=== PATIENT | female | born 1955 | race Hispanic/Latino ===

== ENCOUNTER 2017-06-03 00:08 | Emergency (ER) | payer SELFPAY ==
[~2017-06-03] VITALS: Ht 152.4 cm; Wt 61.8 kg
[~2017-06-03 00:08] MED LIST: AMOXICILLIN500 MG PO; BACTRIM DS1 TAB PO; CIPROFLOXACN500 MG PO; CORTISPORIN OTI10 ML AS; LORTAB 5/3255 MG PO; MUPIROCIN2 % EX; NAPROSYN500 MG OR; TYLENOL500 MG OR
[2017-06-03] MEDS ORDERED: BENADRYL 50MG C50 MG PO (01:08)
[2017-06-03] MEDS ORDERED: AMOXICILLIN875 MG PO (01:08)
[2017-06-03] MEDS ORDERED: LORTAB 10-325 M1 TAB PO (01:08)
[2017-06-03 01:44] VITALS: BP 137/77
== END 2017-06-03 01:46 | disposition home or self-care (01) | DRG 603 ==
LOC: ED 00:08
DX: L01.00 Impetigo, unspecified (principal); L25.9 Unspecified contact dermatitis, unspecified cause

== ENCOUNTER 2017-09-15 18:33 | Emergency (ER) | payer SELFPAY ==
[~2017-09-15] VITALS: Ht 152.4 cm; Wt 60.8 kg
[~2017-09-15 18:33] MED LIST changes: +AMOXICILLIN875 MG PO; +BENADRYL 50MG C50 MG PO; +LORTAB 10-325 M1 TAB PO
[2017-09-15] MEDS ORDERED: PREDNISONE5 MG PO (18:42)
[2017-09-15] MEDS ORDERED: BENADRYL 50MG C50 MG PO (21:37)
[2017-09-15] MEDS ORDERED: KEFLEX500 M1 PO (21:37)
[2017-09-15 21:38] VITALS: BP 132/67
== END 2017-09-15 21:50 | disposition home or self-care (01) | DRG 607 ==
LOC: ED 18:33
DX: R22.0 Localized swelling, mass and lump, head (principal); R50.9 Fever, unspecified

== ENCOUNTER 2018-01-11 21:01 | Emergency (ER) | payer SELFPAY ==
[~2018-01-11] VITALS: Ht 152.4 cm; Wt 62.2 kg
[~2018-01-11 21:01] MED LIST changes: +KEFLEX500 M1 PO; +PREDNISONE5 MG PO
[2018-01-11 21:58] LABS: INFLUENZA A NONE DETECTED (NONE DETECT); INFLUENZA B NONE DETECTED (NONE DETECT)
[2018-01-11] MEDS ORDERED: ROBITUSSIN AC10 ML PO (22:20)
[2018-01-11] MEDS ORDERED: CEPHALEXIN500 MG PO (22:20)
[2018-01-11 22:44] VITALS: BP 137/67
== END 2018-01-11 22:58 | disposition home or self-care (01) | DRG 153 ==
LOC: ED 21:01
PROVIDERS: Emergency Medicine
DX: J06.9 Acute upper respiratory infection, unspecified (principal); R05 Cough; R50.9 Fever, unspecified

== ENCOUNTER 2018-12-30 22:52 | Emergency (ER) | payer SELFPAY ==
[~2018-12-30] VITALS: Ht 152.4 cm; Wt 68.2 kg
[~2018-12-30 22:52] MED LIST changes: +CEPHALEXIN500 MG PO; +ROBITUSSIN AC10 ML PO
[2018-12-31] MEDS ORDERED: NAPROSYN500 MG PO (00:04)
[2018-12-31 00:15] VITALS: BP 127/72
== END 2018-12-31 00:20 | disposition home or self-care (01) | DRG 563 ==
LOC: ED 22:52
DX: S83.91XA Sprain of unspecified site of right knee, initial encounter (principal); W01.0XXA Fall on same level from slipping, tripping and stumbling without subsequent striking against object, initial encounter; Y92.009 Unspecified place in unspecified non-institutional (private) residence as the place of occurrence of the external cause

== ENCOUNTER 2019-02-02 09:48 | Emergency (ER) | payer SELFPAY ==
[~2019-02-02] VITALS: Ht 152.4 cm; Wt 59.0 kg
[~2019-02-02 09:48] MED LIST changes: +NAPROSYN500 MG PO
[2019-02-02 10:36] LABS: HEMATOCRIT 41.3 % (37.0-47.0); HEMOGLOBIN 13.4 g/dl (12.0-16.0); IMMATURE GRANULOCYTES 0.4 % (0.0-5.0); MEAN CELL VOLUME 99.5 fL CALC (80.0-100.0); MEAN CORPUSCULAR HGB 32.3 pG CALC (26.0-32.0); MEAN CORPUSCULAR HGB CONC 32.4 g/L CALC (32.0-36.0); NEUT# 2.82 thou/uL (2.00-7.15); RED BLOOD COUNT 4.15 mill/uL (4.20-5.60); RED CELL DISTRI WIDTH 12.8 % (11.5-15.5)
[2019-02-02 10:48] LABS: ALBUMIN 4.1 g/dL (3.2-5.0); ALKALINE PHOSPHATASE 80 u/l (38-126); ANION GAP 12 (6-22 (CALC)); BUN 12 mg/dL (8-23); BUN/CREATININE RATIO 20 (12-20 (CALC)); CARBON DIOXIDE 26 mmol/l (22-30); CHLORIDE 109 mmol/l (95-108); CREATININE 0.6 mg/dL (0.5-1.0); GFR > 60 ML/MIN (>=60 (CALC)); GFR FOR AFR.AMER. > 60 ML/MIN (>=60 (CALC)); SGOT/AST 15 u/l (9-36); SODIUM 142 mmol/l (137-146); TOTAL PROTEIN 7.2 g/dL (6.3-8.2)
[2019-02-02 10:49] LABS: BILIRUBIN, TOTAL 0.7 mg/dL (0.0-1.4)
[2019-02-02 13:20] VITALS: BP 132/58
== END 2019-02-02 13:33 | disposition home or self-care (01) | DRG 103 ==
LOC: ED 09:48
PROVIDERS: Emergency Medicine
DX: R51 Headache (principal); R11.2 Nausea with vomiting, unspecified; R19.7 Diarrhea, unspecified; R42 Dizziness and giddiness; R00.2 Palpitations; I10 Essential (primary) hypertension

== ENCOUNTER 2019-10-20 10:49 | Emergency (ER) | payer SELFPAY ==
[2019-10-20] MEDS ORDERED: KEFLEX500 M1 PO (11:32)
[2019-10-20 11:46] VITALS: BP 128/74
== END 2019-10-20 11:46 | disposition home or self-care (01) | DRG 603 ==
LOC: ED 10:49
DX: L03.012 Cellulitis of left finger (principal); L02.512 Cutaneous abscess of left hand

== ENCOUNTER 2021-04-14 08:33 | Day surgery (SDC) | payer MEDICAID ==
[~2021-04-14 08:33] MED LIST changes: +AMOXICILLIN250 M1 PO; +MELOXICAM7.5 MG PO; +NEO/POLY/HC AD; +UNKNOWN ANTIBIOTIC
[2021-04-14 11:42] VITALS: BP 138/78
--- NOTE | 2021-04-14 15:13 | NUR ---
PER PHYSICIAN NOTIFIED PATIENT OF PROCEDURE FINDINGS, PATIENT AGREED WITH INFORMATION PROVIDED, AND PER PATIENT WILL FOLLOW UP IN OFFICE 04/25/21. ALSO, PATIENT STATED DOING WELL, TOLERALTED PROCEDURE WELL, AND IS HOME RESTING WITH DAUGHTER AT SIDE.
== END 2021-04-14 11:58 | disposition home or self-care (01) ==
LOC: ENDO 08:33
PROVIDERS: ATTEND Surgery
DX: K57.31 Diverticulosis of large intestine without perforation or abscess with bleeding (principal); K64.8 Other hemorrhoids

== ENCOUNTER 2021-06-02 22:12 | Inpatient (IN) | payer MEDICAID ==
[~2021-06-02] VITALS: Ht 147.3 cm; Wt 63.0 kg
--- NOTE | 2021-06-02 22:40 | NUR ---
ATTEMPT TO CALL SON MAMADOU WITH NUMBER PROVIDED. NO ANSWER. VOICEMAIL LEFT.
--- NOTE | 2021-06-02 22:50 | NUR ---
SON ARRIVES AND IS AT BEDSIDE. BEGINS TO CRY AND SAY "PLEASE DON'T LEAVE ME MOM", PT WHO WAS PREVIOUSLY SEDATED AND ONLY RESPONDED TO PHYSICAL STIMULI WITH MUMBLED SPEECH BEGINS TO CRY AND RESPOND TO SON CLEARLY. DOES NOT OPEN EYES. DR. SHERIFF IN AND ATTEMPTS TO INTERVIEW PT AGAIN. PT RETURNS TO SLEEP WITH NO RESPONSE TO VERBAL STIMULI AND MINIMAL RESPONSE TO PHYSICAL STIMULI.
--- NOTE | 2021-06-02 22:55 | NUR ---
L-H IV 20G INITIATED X1 ATTEMPT. LABS COLLECTED.
--- NOTE | 2021-06-02 23:04 | NUR ---
POISON CONTROL CALLED, CASE DISCUSSED. POISON CONTROL DIRECTIONS ENDORSED TO DR. SHERIFF. TREATMENT PLAN DISCUSSED WITH SON AT BEDSIDE.
[2021-06-02 23:49] LABS: HEMOGLOBIN 13.1 g/dl (12.0-16.0); IMMATURE GRANULOCYTES 0.4 % (0.0-5.0); MEAN CORPUSCULAR HGB 32.9 pG CALC (26.0-32.0); NEUT# 4.24 thou/uL (2.00-7.15); RED BLOOD COUNT 3.98 mill/uL (4.20-5.60); RED CELL DISTRI WIDTH 14.2 % (11.5-15.5)
--- NOTE | 2021-06-03 00:43 | NUR ---
PT SLEEPING. MAINTAINSAIRWAY INDEPENDENTLY.SPO2 97%. SR 82 ON MONITOR. SON AT BEDSIDE.
[2021-06-03 00:49] LABS: ALBUMIN 3.5 g/dL (3.2-5.0); ALKALINE PHOSPHATASE 56 u/l (38-126); ANION GAP 7 (6-22 (CALC)); BUN 18 mg/dL (8-23); BUN/CREATININE RATIO 27 (12-20 (CALC)); CARBON DIOXIDE 27 mmol/l (22-30); CHLORIDE 106 mmol/l (95-108); CREATININE 0.7 mg/dL (0.5-1.0); GFR > 60 ML/MIN (>=60 (CALC)); GFR FOR AFR.AMER. > 60 ML/MIN (>=60 (CALC)); POTASSIUM 3.9 mmol/l (3.5-5.1); SGOT/AST 20 u/l (9-36); SODIUM 136 mmol/l (137-146); TOTAL PROTEIN 6.4 g/dL (6.3-8.2)
[2021-06-03 00:54] LABS: BILIRUBIN, TOTAL 0.2 mg/dL (0.0-1.4)
--- NOTE | 2021-06-03 00:59 | NUR ---
PT IS LETHARGIC, RESPONDS ONLY TO PAIN AND TO SON WHEN STAFF NOT IN ROOM. CANNOT COMPLETE SUICIDE ASSESMENT AT THIS TIME.
[2021-06-03 01:01] LABS: MYOGLOBIN 19 ng/mL (0 - 62)
[2021-06-03 01:48] LABS: URINE BILIRUBIN - DIPSTICK NEGATIVE (NEGATIVE); URINE BLOOD DIPSTICK NEGATIVE (NEGATIVE); URINE COLOR YELLOW; URINE GLUCOSE - DIPSTICK NEGATIVE (NEGATIVE); URINE KETONE NEGATIVE (NEGATIVE); URINE LEUK ESTERASE NEGATIVE (NEGATIVE); URINE NITRITE - DIPSTICK NEGATIVE (Negative); URINE PROTEIN - DIPSTICK NEGATIVE (NEG-TRACE); URINE SPECIFIC GRAVITY >=1.030; URINE UROBILINOGEN - DIPSTICK 0.2 E.U./dL (0.2)
--- NOTE | 2021-06-03 02:00 | NUR ---
PT APPEARS TO BE SLEEPING COMFORTABLY. MAINTAINING AIRWAY. NO APPARENT DISTRESS. SON REMAINS AT BEDSIDE. CALL [facility]USH WITHIN REACH.
--- NOTE | 2021-06-03 04:00 | NUR ---
PT APPEARS TO BE SLEEPING COMFORTABLY. MAINTAINING AIRWAY. NO APPARENT DISTRESS. SON REMAINS AT BEDSIDE. CALL [facility]USH WITHIN REACH.
--- NOTE | 2021-06-03 04:23 | NUR ---
BLANKET PROVIDED. PT CON'T TO SLEEP. NO APPARENT DISTRESS. VSS.
--- NOTE | 2021-06-03 04:40 | NUR ---
CALL RECEIVED FROM POISON CONTROL. NO CHANGES IN TX PLAN. POISON CONTROL WILL CALL BACK LATER IN DAY.
--- NOTE | 2021-06-03 07:15 | NUR ---
DR VILA AT BEDSIDE. PT SPO2 98% ON 2L NC AND HAS GURGLING IN THROAT WHEN BREATHING. DR VILA SPEAKING WITH SON AT BEDSIDE AND DAUGHTER ON PHONE REGARDING INTUBATION. ALL ARE IN AGREEANCE TO INTUBATE PATIENT.
--- NOTE | 2021-06-03 07:30 | NUR ---
FAMILY NOW QUESTIONING IF INTUBATION IS THE RIGHT THING. FAMILY SPEAKING WITH DR VILA VIA PHONE TO DISCUSS RISKS VS BENEFITS.
--- NOTE | 2021-06-03 07:58 | NUR ---
SYSTEMS TESTER SET UP VENTILATOR AT BEDSIDE PER POSSIBLE INTUBATION TO OCUR. AWAITING FAMILY DECISION. SYSTEMS TESTER TO MONITOR.
--- NOTE | 2021-06-03 08:15 | NUR ---
FAMILY HAS ALL DECIDED THAT PATIENT WILL BE INTUBATED. DR VILA AND KACIE YANG AT BEDSIDE.
--- NOTE | 2021-06-03 08:25 | NUR ---
DR VILA AT BEDSIDE TO INTUBATE . 20 MG OF ETOMIDATE GIVEN IVP BY DR VILA AT 0825 100 MG OF ROCURONIUM IVP AT 0826 PATIENT INTUBATED WITH A 7.5 ET TUBE MEASURING 22 AT THE LIP AT 0827 PROPOFOL INITAITED AT 10 MCG/KG/MIN. VSS 16F NG TUBE PLACED TO RIGHT NARES BY DR VILA. STOMACH CONTENTS AND PPLACEMENT CONFIRMED BY AUSCULTATION. DR VILA PLACED RIGHT IJ CENTRAL LINE AT 0841.
--- NOTE | 2021-06-03 09:20 | NUR ---
PATIENT REMAINS SEDATED. DR VILA SPEAKING WITH WHO IS AT BEDSIDE.
--- NOTE | 2021-06-03 09:58 | NUR ---
INITIATED INVASIVE MECHANICAL VENTILATION PER PT POSSIBLE OD. AIRWAY PROTECTION IS THE OBJECTIVE AT THIS TIME. ETT SECURE AND PATENT. ABG TO BE DRAWN. SPANISH TEACHER TO MONITOR.
--- NOTE | 2021-06-03 10:20 | NUR ---
DR WARREN AT BEDSIDE.
--- NOTE | 2021-06-03 11:01 | NUR ---
POISON CONTROL CALLED FOR AN UPDATED THEY REPORTED CONTINUE SUPPORTIVE CARE.
--- NOTE | 2021-06-03 11:19 | NUR ---
Reassessment of patient completed. No distress noted.
--- NOTE | 2021-06-03 12:04 | NUR ---
Reassessment of patient completed. No distress noted.
--- NOTE | 2021-06-03 14:00 | NUR ---
Reassessment of patient completed. No distress noted. TURNED TO LEFT SIDE
--- NOTE | 2021-06-03 14:10 | NUR ---
Reassessment of patient completed. No distress noted.
--- NOTE | 2021-06-03 15:56 | NUR ---
Reassessment of patient completed. No distress noted. CHANGE POSITION WAS DONE
--- NOTE | 2021-06-03 18:00 | NUR ---
Reassessment of patient completed. No distress noted. TURNED TO THE RIGHT SIDE
--- NOTE | 2021-06-03 20:43 | NUR ---
Reassessment of patient completed. No distress noted. TURNED TO SUPINE POSITION
--- NOTE | 2021-06-03 21:53 | NUR ---
Reassessment of patient completed. No distress noted. TURNED TO LEFT SIDE AND EMPTY REAVES 800CC
--- NOTE | 2021-06-03 22:10 | NUR ---
ASSUMED CARE OF PT. PT IS RESING. VENTED. ET TUBE SECURED. BBS+/RHOCHI. OG TO LIT CLEAR FLUID. SECURED TO ET. REAVES DRAINING SMALL OF CONCETRATED URINE. REAVES SECURED TO LEG. TRIPLE LUMEN IN RIGHT JUGULAR. DRSG DRY AND INTACT. DIPROVAN INFUSING IN LEFT WRIST IV. SITE GOOD IS SITE IN LEFT AC. FLUSHED. CALL LIGHT ON RAIL/RAILS UP. BED LOW. NAD.
--- NOTE | 2021-06-04 00:01 | NUR ---
NO CHANGE IN PT CONDITION. VSS. RESP HERE TO MAKE ROUNDS. SUCTIONED PATIENT.
--- NOTE | 2021-06-04 02:00 | NUR ---
PT BED ADJUSTED. RESP EASY. NAD. VSS.
--- NOTE | 2021-06-04 02:00 | NUR ---
URINE APPEARS CLOUDY AND DARK..UA ORDERED AND SENT TO LAB.
[2021-06-04 02:12] LABS: URINE BLOOD DIPSTICK NEGATIVE (NEGATIVE); URINE COLOR YELLOW; URINE GLUCOSE - DIPSTICK NEGATIVE (NEGATIVE); URINE KETONE 15 mg/dL (NEGATIVE); URINE LEUK ESTERASE NEGATIVE (Negative); URINE NITRITE - DIPSTICK NEGATIVE (Negative); URINE PROTEIN - DIPSTICK TRACE mg/dL (NEG-TRACE); URINE SPECIFIC GRAVITY >=1.030; URINE UROBILINOGEN - DIPSTICK 0.2 E.U./dL (0.2)
[2021-06-04 02:14] LABS: URINE BILIRUBIN - DIPSTICK MODERATE (NEGATIVE); URINE CLARITY SL CLOUDY
--- NOTE | 2021-06-04 04:00 | NUR ---
PT MOVED TO HOSPITAL BED. CLEASED. POSITIONED ON SIDE. VSS.
[2021-06-04 05:27] LABS: HEMATOCRIT 42.5 % (37.0-47.0); HEMOGLOBIN 13.6 g/dl (12.0-16.0); MEAN CORPUSCULAR HGB 32.3 pG CALC (26.0-32.0); RED BLOOD COUNT 4.21 mill/uL (4.20-5.60); RED CELL DISTRI WIDTH 13.5 % (11.5-15.5)
--- NOTE | 2021-06-04 05:45 | NUR ---
RT HERE TO ROUND ON PT. SUCTIONED. AM LABS DRAWN VIA TRIPLE LUMEN. FLUSHED. BRANDIROVAN MOVED TO DISTAL PORT. PORT CXR COMPLETD.
[2021-06-04 05:46] LABS: ANION GAP 11 (6-22 (CALC)); BUN 16 mg/dL (8-23); BUN/CREATININE RATIO 21 (12-20 (CALC)); CARBON DIOXIDE 27 mmol/l (22-30); CHLORIDE 105 mmol/l (95-108); CREATININE 0.8 mg/dL (0.5-1.0); GFR > 60 ML/MIN (>=60 (CALC)); GFR FOR AFR.AMER. > 60 ML/MIN (>=60 (CALC)); MAGNESIUM 2.1 mg/dL (1.6-2.3); SODIUM 139 mmol/l (137-146)
--- NOTE | 2021-06-04 07:00 | NUR ---
REPORT TO DIDI VALERIO. PT RESTING. VSS. NAD.
--- NOTE | 2021-06-04 07:35 | NUR ---
Reassessment of patient completed. No distress noted. Patient remains on ventilator at this time.
--- NOTE | 2021-06-04 08:31 | NUR ---
BEING TO TITRATE DOWN PROPOPHAL PER VERBAL BEDSIDE ORDER OF DR WARREN
--- NOTE | 2021-06-04 09:30 | NUR ---
PROPOPHAL @ 21.0 mcg/kg/hr and 8.8 ml's/hr
--- NOTE | 2021-06-04 11:00 | NUR ---
PROPOPHAL REDUCED TO 7.1 ML'S PER HOUR / 17.0 mcg/kg/min.
--- NOTE | 2021-06-04 11:39 | NUR ---
TELEPHONE CALL FROM LAILA AT POSION CONTROL FOR PATIENT UPDATE, INFORMATION DISCUSSED NEEDED.
--- NOTE | 2021-06-04 12:30 | NUR ---
PROPOPHAL CURRENTLY RUNNING @6.5 mk's per/hour & 15.5 mcg/kg/hr
--- NOTE | 2021-06-04 13:15 | NUR ---
Q2 HOUR TURN SCHEDULE [facility]
--- NOTE | 2021-06-04 14:40 | NUR ---
PROPOPHAL CURRENTLY @5 ml's per/hr & 12.0 mcg/kg/hr
--- NOTE | 2021-06-04 15:30 | NUR ---
PROPOPHAL TURNED OFF
--- NOTE | 2021-06-04 15:40 | NUR ---
FAMILY IS OUTSIDE OF HOSPITAL. NURSE OUTSIDE TO FABIANO ROD
--- NOTE | 2021-06-04 16:30 | NUR ---
NURSING BOAT CARPENTER MECHANIC/INFECTION CONTROL NURSE PRESENT BEDSIDE TO VIDEO CHAT WITH FAMILY/PATIENT
--- NOTE | 2021-06-04 18:40 | NUR ---
TELEPHONE CALL WITH DR WARREN R/T PATIENT STATUS POSSIBLE ORDER FOR CT TO FOLLOW
--- NOTE | 2021-06-04 18:50 | NUR ---
ASSISTED NURSE RAMIRO IN APPLYING SOFT WRIST RESTRAINTS TO PTS UPPER EXT FOR PT REACHING FOR ET TUBE APPARATUS
--- NOTE | 2021-06-04 18:50 | NUR ---
Rt BEDSIDE WITH PATIENT, PATIENT WITH SMALL MOVEMENTS OF HER OWN POWER. BEDSIDE REPORT TO QIANA RN
--- NOTE | 2021-06-04 19:03 | NUR ---
REPORT TO QIANA RN
--- NOTE | 2021-06-04 20:30 | NUR ---
EXTUBATED PATIENT. PLACED ON 3L/NC WITH SPO2 MAINTAINING 96%. HR 108. RR 22. NO DISTRESS NOTED. LOOSE COUGH AFTER EXTUBATION.
--- NOTE | 2021-06-04 20:40 | NUR ---
DR. WARREN NOTIFIED OF PT BEING OFF DIPROVAN AND BEATHING ON HER OWN. ORDER GIVEN TO DISCONTINUE E.T. R.T. NOTIFIED AND E.T. TUBE AND OG REMOVED. TOLERATED WELL. PT REMAINS NON-VERBAL BUT HAS PURPOSEFUL MOVEMENT.
--- NOTE | 2021-06-04 22:58 | NUR ---
UPDATE GIVEN TO POISON CONTROL
--- NOTE | 2021-06-04 23:00 | NUR ---
PT HAS CONVERTED FROM AFIB TO NSR RESPONSES REMAIN TO NOXIOUS STIM
--- NOTE | 2021-06-05 01:34 | NUR ---
W/P/D SKIN NO COUGH NO CONGESTION C AFIB 90S BPM.IV NS 75CC/HR LAC UNREMARKANBLE
[2021-06-05 05:02] LABS: HEMATOCRIT 43.7 % (37.0-47.0); HEMOGLOBIN 13.9 g/dl (12.0-16.0); MEAN CELL VOLUME 102.8 fL CALC (80.0-100.0); MEAN CORPUSCULAR HGB 32.7 pG CALC (26.0-32.0); MEAN CORPUSCULAR HGB CONC 31.8 g/dL CAL (32.0-36.0); RED BLOOD COUNT 4.25 mill/uL (4.20-5.60); RED CELL DISTRI WIDTH 13.5 % (11.5-15.5)
[2021-06-05 05:18] LABS: ANION GAP 12 (6-22 (CALC)); BUN 13 mg/dL (8-23); BUN/CREATININE RATIO 21 (12-20 (CALC)); CARBON DIOXIDE 24 mmol/l (22-30); CHLORIDE 108 mmol/l (95-108); CREATININE 0.6 mg/dL (0.5-1.0); GFR > 60 ML/MIN (>=60 (CALC)); GFR FOR AFR.AMER. > 60 ML/MIN (>=60 (CALC)); MAGNESIUM 2.2 mg/dL (1.6-2.3); SODIUM 140 mmol/l (137-146)
--- NOTE | 2021-06-05 06:48 | NUR ---
YOUNG PT REACTS WITHDRAWS FROM BRIGHT LIGHTS .VERBAL RESPONSES ARE NOT COMPREHENSABLE.SR NO AFIB W/P;/D SKIN.
--- NOTE | 2021-06-05 07:08 | NUR ---
PT REPORT TO RAMONITA TOLBERT
[2021-06-05 08:16] VITALS: BP 129/63
--- NOTE | 2021-06-05 10:10 | NUR ---
REPORT TO ANNE TOLBERT
--- NOTE | 2021-06-05 10:22 | NUR ---
MD WARREN PASS ROUND AND EVALUATED THE PATIENT WITH HIS NURSE PRACTITIONER
--- NOTE | 2021-06-05 10:31 | NUR ---
SITTER AT BEDSIDE PATIENT MENESES ACT
--- NOTE | 2021-06-05 12:08 | NUR ---
Reassessment of patient completed. No distress noted. TURNED TO RIGHT SIDE BY SITTER AND RN
--- NOTE | 2021-06-05 13:24 | NUR ---
Reassessment of patient completed. No distress noted. TURNED TO THE LEFT SIDE Pt. rechecked post pain med administration. Pain level (1-10): 0 Pain better/worse: PAIN FREE
--- NOTE | 2021-06-05 14:35 | NUR ---
RN EMPTY 350CC FO URINE
--- NOTE | 2021-06-05 14:35 | NUR ---
Reassessment of patient completed. No distress noted.
--- NOTE | 2021-06-05 16:09 | NUR ---
LENNOX MCGUIRE POISION CONTROL CONTACTED 06/05/21 1410 FOR GET UPDATES
--- NOTE | 2021-06-05 16:11 | NUR ---
Reassessment of patient completed. No distress noted. POISON CONTROL INFO Labs Recommended: Other Orders Recommended: Lavage Recommended (Yes/No): Observation Time Recommended: Signs/Symptoms to Observe For: LENNOX MCGUIRE CALLED FOR GET UPDATES PATIENT TURNED TO SUPINE POSITION
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
--- NOTE | 2021-06-05 16:57 | NUR ---
PATIENT WAS TAKEN TO DO A BRAIN MRI
--- NOTE | 2021-06-05 19:16 | NUR ---
Reassessment of patient completed. No distress noted.Pt. rechecked post pain med administration. Pain level (1-10): 0 Pain better/worse: NOT VERBALIZED TURNED TO THE RIGHT SIDE
--- NOTE | 2021-06-05 21:34 | NUR ---
Reassessment of patient completed. No distress noted. TURNED TO LEFT SIDE
--- NOTE | 2021-06-06 00:36 | NUR ---
PT SPONTANEOUSLY OPENS HER EYES OFFERS APPROPRIATE VERBAL RESPONSES TO SIMPLE QUESTIONS.DENIES PAIN NO DYSPNEA PT TELLS ME
[2021-06-06 06:05] LABS: HEMATOCRIT 38.7 % (37.0-47.0); HEMOGLOBIN 12.3 g/dl (12.0-16.0); MEAN CELL VOLUME 103.2 fL CALC (80.0-100.0); MEAN CORPUSCULAR HGB 32.8 pG CALC (26.0-32.0); MEAN CORPUSCULAR HGB CONC 31.8 g/dL CAL (32.0-36.0); RED BLOOD COUNT 3.75 mill/uL (4.20-5.60); RED CELL DISTRI WIDTH 13.4 % (11.5-15.5)
--- NOTE | 2021-06-06 06:20 | NUR ---
PT HAS SM SOFT BROWN BM PERICARE.
--- NOTE | 2021-06-06 06:55 | NUR ---
REPORT RECEIVED FROM DIDI KIRAN.
--- NOTE | 2021-06-06 06:58 | NUR ---
PT REPORT TO NURSE STEFANIA
[2021-06-06 07:00] LABS: ANION GAP 10 (6-22 (CALC)); BUN 16 mg/dL (8-23); BUN/CREATININE RATIO 29 (12-20 (CALC)); CARBON DIOXIDE 25 mmol/l (22-30); CHLORIDE 110 mmol/l (95-108); CREATININE 0.6 mg/dL (0.5-1.0); GFR > 60 ML/MIN (>=60 (CALC)); GFR FOR AFR.AMER. > 60 ML/MIN (>=60 (CALC)); MAGNESIUM 2.1 mg/dL (1.6-2.3); POTASSIUM 3.7 mmol/l (3.5-5.1); SODIUM 141 mmol/l (137-146)
[2021-06-06 08:00] VITALS: BP 134/60
--- NOTE | 2021-06-06 08:00 | NUR ---
PT AROUSABLE TO VOICE AND ALERT TO SELF ONLY. SPEECH GARBLED. VITALS STABLE ON MONITOR. PT WITH AUDIBLE SECRETIONS, SUCTIONED AT THIS TIME, TOLERATED WELL. PT HAD BM, SITTER AT BEDSIDE, PT CLEANED AND REPOSITIONED. REAVES TRAINING DARK YELLOW URINE. BED IN LOW POSITION.
--- NOTE | 2021-06-06 10:00 | NUR ---
NO CHANGES. PT REPOSITIONED BY SITTER/CHIEF OF STAFF.
[2021-06-06 11:27] VITALS: BP 115/55
--- NOTE | 2021-06-06 11:28 | NUR ---
SPOKE WITH PTS DAUGHTER REGARDING UPDATE ON PT. REPORTS THEY THINK PT TOOK FLUOXETINA 20MG, STATES IT WAS NOT PTS RX, CAME FROM [place]. PT HAS BEEN CHANGED, CLEANED UP, HAD ANOTHER BM. VITALS UPDATED. IV MEDS CONTINUE TO INFUSE WITHOUT DIFFICULTY.
--- NOTE | 2021-06-06 13:00 | NUR ---
PT RESTING, NO DISTRESS NOTED. VITALS STABLE. BED IN LOW POSITION. SITTER/TOOL CARRIER REMAINS AT BEDSIDE. REAVES DRAINING YELLOW URINE.
[2021-06-06 16:01] VITALS: BP 124/58
--- NOTE | 2021-06-06 16:04 | NUR ---
PT ASKED FOR WATER, 4OZ OF WATER SIPPED BY PT, TOLERATED WELL.
--- NOTE | 2021-06-06 18:24 | NUR ---
PT RESTING, REMAINS STABLE ON MONITOR. NEW SITTER/REFRIGERATED NATIONAL TRUCK DRIVER AT BEDSIDE.
--- NOTE | 2021-06-06 21:47 | NUR ---
Reassessment of patient completed. No distress noted.
--- NOTE | 2021-06-06 23:27 | NUR ---
Reassessment of patient completed. No distress noted.
[2021-06-07] VITALS (10 sets, daily range): BP systolic 113–156; BP diastolic 55–82
--- NOTE | 2021-06-07 00:34 | NUR ---
Reassessment of patient completed. No distress noted.
--- NOTE | 2021-06-07 01:31 | NUR ---
Reassessment of patient completed. No distress noted.
[2021-06-07 05:46] LABS: HEMATOCRIT 39.4 % (37.0-47.0); HEMOGLOBIN 12.4 g/dl (12.0-16.0); IMMATURE GRANULOCYTES 1.7 % (0.0-5.0); MEAN CORPUSCULAR HGB 32.7 pG CALC (26.0-32.0); MEAN CORPUSCULAR HGB CONC 31.5 g/dL CAL (32.0-36.0); NEUT# 7.11 thou/uL (2.00-7.15); RED BLOOD COUNT 3.79 mill/uL (4.20-5.60); RED CELL DISTRI WIDTH 13.2 % (11.5-15.5)
[2021-06-07 05:54] LABS: ALBUMIN 2.8 g/dL (3.2-5.0); ALKALINE PHOSPHATASE 73 u/l (38-126); ANION GAP 13 (6-22 (CALC)); BUN 14 mg/dL (8-23); BUN/CREATININE RATIO 29 (12-20 (CALC)); CARBON DIOXIDE 21 mmol/l (22-30); CHLORIDE 112 mmol/l (95-108); CREATININE 0.5 mg/dL (0.5-1.0); GFR > 60 ML/MIN (>=60 (CALC)); GFR FOR AFR.AMER. > 60 ML/MIN (>=60 (CALC)); POTASSIUM 3.8 mmol/l (3.5-5.1); SGOT/AST 20 u/l (9-36); SODIUM 143 mmol/l (137-146); TOTAL PROTEIN 5.8 g/dL (6.3-8.2)
[2021-06-07 06:10] LABS: BILIRUBIN, TOTAL 0.5 mg/dL (0.0-1.4)
--- NOTE | 2021-06-07 08:08 | NUR ---
REPORT CALLED TO KATLYN RN, ICU
--- NOTE | 2021-06-07 09:58 | NUR ---
PT ARRIVES TO ICU-8 ACCOMPANIED BY RAMIRO AND TRAV ARRIOLA. PT IS SLOW TO SPEAK, MICRONESIAN ONLY. PT WITH EYES CLOSED, BUT OPENS AND SPEAKS A FEW WORDS IN MICRONESIAN WHEN ASKED. NO DISTRESS. PT SEEN BY DR WARREN.
--- NOTE | 2021-06-07 12:23 | NUR ---
PT CONTINUES BEFORE, LETHARGIC BUT INTERACTIVE WHEN ASKED QUESTIONS. SITTER REMAINS AT BEDSIDE. THERAPY AT BEDSIDE, STATED THAT SHE ONLY FLEXED HER HAND SLIGHTLY IN RESPONSE TO COMMAND.
--- NOTE | 2021-06-07 17:34 | NUR ---
PT HAS BEEN ON TELENEURO CALL THIS AFTERNOON, ORDERED BY DR WARREN. PT SEEN TO HAVE SOME RESISTANCE TO GRAVITY EVEN THOUGH ARMS AND LEGS FALL TO BED. VSS. NO DISTRESS, NO STATEMENTS INDICATING THAT SHE WANTED TO HARM HERSELF.
--- NOTE | 2021-06-07 19:36 | NUR ---
REPORT RECIVED FROM DIDI POTTS. ASSUMED CARE.
--- NOTE | 2021-06-07 20:00 | NUR ---
PT RESTING IN BED DOES RESPOND TO VERBAL STIMULI. PT DOES NOT FREELY LIFT HER EXTREMITIES. SHE CONTINUES TO BE LETHARGIC. PT CONTINUES ON 2L O2 VIA NC. NO S/S OF DISTRESS NOTED. BREATHING SHALLOW AND UNLABORED. DENIES PAIN. SAFETY PRECAUTIONS REMAIN IN PLACE, WILL MONITOR
--- NOTE | 2021-06-07 22:00 | NUR ---
PT CONTINUES TO REST IN BED WITH EYES CLOSED. NO S/S OF DISTRESS, NO COMPLAINTS VOICED. SAFETY PRECAUTIONS REMAIN IN PLACE, WILL MONITOR
[2021-06-08] VITALS (17 sets, daily range): BP systolic 116–145; BP diastolic 51–76
--- NOTE | 2021-06-08 | NUR ---
PT RESTING QUIETLY. SITTER HAS BEEN BEDSIDE SINCE START OF BAG LOADER. NO CONCERNS AT THIS TIME. NO COMPLAINTS VOICED. NO S/S OF DISTRESS. WILL MONITOR
--- NOTE | 2021-06-08 02:00 | NUR ---
PT RESTING QUIETLY WITH HER EYES CLOSED. SITTER AT BEDSIDE, PT REMAINS UNDER A MENESES ACT. PT SPEAKS ONLY ROMANSH BUT WITH HER STATE OF LETHARGY SHE DOESN'T TALK MUCH. LIMBS REMAIN FLACCID WITH MINIMAL MOVEMENT. WILL CONTINUE TO MONITOR.
--- NOTE | 2021-06-08 04:00 | NUR ---
PT RESTING QUIETLY, SITTER AT BEDSIDE. NO COMPLAINTS VOICED. NO S/S OF DISTRESS NOTED. O2 @ 2L VIA NC CONTINUES. PT AT TIMES WILL BREATHE SHALLOW. OXYGEN SATURATIONS REMAIN WNL. SAFETY PRECAUTIONS REMAIN IN PLACE. WILL MONITOR
[2021-06-08 06:10] LABS: HEMATOCRIT 36.7 % (37.0-47.0); HEMOGLOBIN 11.4 g/dl (12.0-16.0); MEAN CELL VOLUME 105.2 fL CALC (80.0-100.0); MEAN CORPUSCULAR HGB 32.7 pG CALC (26.0-32.0); MEAN CORPUSCULAR HGB CONC 31.1 g/dL CAL (32.0-36.0); RED BLOOD COUNT 3.49 mill/uL (4.20-5.60)
[2021-06-08 06:17] LABS: ANION GAP 7 (6-22 (CALC)); BUN 12 mg/dL (8-23); BUN/CREATININE RATIO 29 (12-20 (CALC)); CHLORIDE 110 mmol/l (95-108); CREATININE 0.4 mg/dL (0.5-1.0); GFR > 60 ML/MIN (>=60 (CALC)); GFR FOR AFR.AMER. > 60 ML/MIN (>=60 (CALC)); POTASSIUM 4.1 mmol/l (3.5-5.1); SODIUM 140 mmol/l (137-146)
[2021-06-08 06:19] LABS: CARBON DIOXIDE 27 mmol/l (22-30)
--- NOTE | 2021-06-08 08:00 | NUR ---
PATIENT LAYING IN BED WITH EYES OPEN AT THIS TIME. PATIENT ALERT TO SELF AND WHEN SPOKEN TOO ANSWERS. PATIENT IS CONFUSED TO DATE AND PLACE AND TIME. PATIENT WHEN ASKED TO MOVE HER LIMBS WILL NOT COMPLY WITH ORDER. PATIENT HAS NOTED BILATERAL HAND SWELLING WITHOUT PITTING EDEMA. PATIENT PUPILS ARE EQUAL AND REACTIVE TO LIGHT. PATIENT HAS NOTED INDWELLING REAVES CATH THAT WAS PLACE UPON ADMISSION AND DRAINING CLEAR YARELI URINE AT THIS TIME. PATIENT ALSO HAS PRODUCTIVE COUGH WITH SMALL YELLOWISH THIN SECREATIONS. PATIENT HAS A SITTER AT BEDSIDE AND PATIENT CONSUMES LIQUIDS AND PUREED FOODS WITHOUT DIFFICULTIES. LUNG MEDEIROS ARE CLEAR AT THIS TIME. INDUSTRIAL ANALYST READING : HR S/R AT 76 AND SPO2 ON 2 L IS 96%. SIDERAILS ARE UP X 2 CALL LIGHT IS WITHIN REACH.
--- NOTE | 2021-06-08 10:15 | NUR ---
PATIENT RESTING IN BED AT THIS TIME WITH SITTER AT BEDSIDE. PATIENT DENIES ANY PAIN AND SIDERAILS ARE UP CALL LIGHT WITHIN REACH. WILL CONTIUNE TO MONITOR.
--- NOTE | 2021-06-08 12:46 | NUR ---
Radha received in supine, awake. Radha demonstrated increased voluntary movement of bilat UE but continues to have difficulty with opening/ closing of hand. OT instructed patient in opening mouth wide to complete tooth brushing, as patient reported not having brushed teeth since hospital admission. Max A provided to support patient's hand and bring up to mouth for success with task. Radha continues to be disoriented to time, unaware of what year we were in. Left pt with MAGICIAN HELPER at bedside.
--- NOTE | 2021-06-08 13:21 | NUR ---
Pt seen laying in bed with repositioning to high fowlers with assistance needed to reduce leaning towards the L. Pt was A&O x2. PLATE PREPARER reported assistance during meals with s/s of aspiration/penetration with direct assistance and use of swallow strategies. Pt had stable O2 sats during trials of pureed solids and thin liquids. Pt given 4 mechanical soft PO trials at bedside with prolonged mastication time, in creased repsiratory rate, and mild oral residue cleared with thin liquids. Clinical Pharmacy Specialist recommends continuation of pureed solids and thin liquids at this time d/t masticatio ndifficulties and reduced awareness of residue. Pt was provided oral care with collaboration of Sary VARGAS/Miles with maximum/total assistance. Pt left with PLATE PREPARER, call novak within reach and repositioned in bed.
--- NOTE | 2021-06-08 16:15 | NUR ---
PATIENT UP IN CHAIR AT THIS TIME. PATIENT IS MORE TALKATIVE AND REQUESTED TO USE THE TELEPHONE. WHEN ASKED PATIENT DID GRASP WITH HANDS AND GRASP WAS WEAK. PATIENT WHEN ASKED DID MOVE HER LEGS. NOTED EDEMA REMAINS IN BILATERAL HANDS WITHOUT PITTING EDEMA. PATIENT REMAINS ON 02 VIA N/C AND SPO2 IS CURRENTLY 98%. SITTER REMAINS AT BEDSIDE AT THIS TIME.
--- NOTE | 2021-06-08 17:22 | NUR ---
RIGHT EJ TRIPLE LUMEN FLUSHED AT THIS TIME. ALL LINE CLEAR AND BLOOD RETURN NOTED.
--- NOTE | 2021-06-08 18:00 | NUR ---
PATIENT SITTING UP IN CHAIR AT THIS TIME PATIENT STATES "I'M NOT HUNGRY" SO REFUSED TO EAT DINNER. PATIENT IS ON ROOM AIR AND SPO2 IS 96%. SITTER REMAINS AT BEDSIDE PRESCHOOL PRINCIPAL READING HR 76 S/R AT THIS TIME.
--- NOTE | 2021-06-08 20:19 | NUR ---
PATIENT AWAKE AND SEATED IN BEDSIDE CHAIR. VITALS AND ASSESSMENT TAKEN. SITTER AT BEDSIDE
--- NOTE | 2021-06-08 23:45 | NUR ---
PATIENT AWAKE WATCHING TELEVISION. NO CONCERNS OR COMPLAINTS AT THIS TIME
[2021-06-09] VITALS (22 sets, daily range): BP systolic 119–151; BP diastolic 54–75
--- NOTE | 2021-06-09 02:14 | NUR ---
PATIENT REMAINS STABLE. SITTER REMAINS AT BEDSIDE
[2021-06-09 05:53] LABS: HEMOGLOBIN 11.3 g/dl (12.0-16.0); MEAN CELL VOLUME 100.6 fL CALC (80.0-100.0); MEAN CORPUSCULAR HGB 32.5 pG CALC (26.0-32.0); MEAN CORPUSCULAR HGB CONC 32.3 g/dL CAL (32.0-36.0); RED BLOOD COUNT 3.48 mill/uL (4.20-5.60); RED CELL DISTRI WIDTH 12.6 % (11.5-15.5)
[2021-06-09 06:07] LABS: BUN 8 mg/dL (8-23); BUN/CREATININE RATIO 18 (12-20 (CALC)); CHLORIDE 102 mmol/l (95-108); CREATININE 0.4 mg/dL (0.5-1.0); GFR > 60 ML/MIN (>=60 (CALC)); GFR FOR AFR.AMER. > 60 ML/MIN (>=60 (CALC)); SODIUM 136 mmol/l (137-146)
[2021-06-09 06:09] LABS: ANION GAP 3 (6-22 (CALC)); CARBON DIOXIDE 34 mmol/l (22-30); POTASSIUM 3.1 mmol/l (3.5-5.1)
--- NOTE | 2021-06-09 08:24 | NUR ---
PATIENT LAYING IN BED AT THIS TIME PATEINT ALERT TO NAME AND WHEN ASKED IF SHE HAS PAIN PATIENT REPLYS "NO". PATIENT HAS NOTED NON-PITTING EDEMA IN BILATERAL ARM'S AND HANDS AND MORE IN LEFT HAND. NEURO CHECKS REVEAL WHEN PATIENT IS ASKED TO GRASP HAND PATIENT FOLLOWS COMMANDS BUT GRASPS ARE WEAK. WHEN PATIENT ASK TO MOVE LEG PATIENT COMPLIES, WHEN PATIENT ASK TO LIFT LEGS AND ARMS THEY DROP TO BED. PATIENT PUPILS ARE EQUAL AND REACT TO LIGHT. PATIENT'S SPEECH IS CLEAR BUT AT TIMES GARBLED. PATIENT HAS RIGHT EJ TRIPLE LUMEN AND ALL LINED FLUSHED AT THIS TIME AND BLOOD WAS RETURNED. PATIENT IS NOW ON 2L OF O2 AND SPO2 IS 91%. AUTOMOTIVE FUEL INJECTION SERVICER COMPLETED SEE INTERVENTIONS. INTEL RECRUITER SHOWS PATIENT HR IS S/R 70 AT THIS TIME. REAVES IS PATENT AND DRIANING YARELI COLOR URINE AT THIS TIME. SIDERAILS ARE UP CALL LIGHT WITHIN REACH.
--- NOTE | 2021-06-09 09:15 | NUR ---
PATIENT TAKEN TO MRI AT THIS TIME VIA STRETCHER. SITTER IS WITH PATIENT.
--- NOTE | 2021-06-09 10:02 | NUR ---
PATIENT REMAINS OFF FLOOR AT THIS TIME IN MRI.
--- NOTE | 2021-06-09 10:44 | NUR ---
Tx session attempted, pt down at imaging. Will try back later.
--- NOTE | 2021-06-09 10:45 | NUR ---
pt agreed to participate and transitioned from supine to sitting on EOB with min assist . She then stood up with mod assist and was able to maintain standing position for 2 minutes with support under each arm. Pt was very fatigued afterwards. Ampac score is 6
--- NOTE | 2021-06-09 11:46 | NUR ---
PATIENT RESTING IN BED AT THIS TIME. PATIENT IS ALERT AND ORIENTED TO NAME, PLACE AND MONTH. PATIENT DENIES ANY PAIN AT THIS TIME. PATIENT WHEN ASKED TO MOVE EXTREMITIES OBEYS COMMANDS BUT ARE VERY WEAK. PATIENT IS ON 2L OF O2 AND SPO2 IS 95% AT THIS TIME. SIDERAILS ARE UP CALL LIGHT IS WITHIN REACH. SITTER REMAINS AT BEDSIDE.
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
--- NOTE | 2021-06-09 14:56 | NUR ---
Radha improving orientation status, AOx3. She completed functional reaching independently with decreased speed to promote increased I with ADLs. Radha is demonstrating increased strength in bilateral UE. She is able to reach up and touch her head, grasp and hold cup with min A to bring to mouth, and grasp and hold spoon with mod A for grasping.
--- NOTE | 2021-06-09 16:00 | NUR ---
PATIENT RESTING IN BED AT THIS TIME. PATIENT PRESENTS WITH DRY NON-PRODUCTIVE COUGH AT THIS TIME. PATIENT SPO2 ON ROOM AIR IS 94%. PATIENT IS ALERT AND DOES FOLLOW COMMANDS. REAVES IS STILL PATENT AND DRAINING YARELI COLOR URINE AT THIS TIME. SIDERAILS ARE UP CALL LIGHT IS WITHIN REACH. SITTER REMAINS AT BEDSIDE.
--- NOTE | 2021-06-09 18:06 | NUR ---
PATIENT SITTING UP IN BED AT THIS TIME ALERT X 3 BEING ASSISTED WITH EATING. PATIENT DENEIS PAIN AND IS ON O2 AT 2L AT THIS TIME AND SPO2 IS CURRENTLY 96%. SITTER REMAINS IN ROOM AT THIS TIME.,
--- NOTE | 2021-06-09 18:55 | NUR ---
RECEIVED REPORT FROM SOHA TOLBERT.
--- NOTE | 2021-06-09 20:00 | NUR ---
PATIENT AWAKE IN BED. ALERT TO ORIENTED X2. DENIES PAIN. RESPIRATIONS EVEN AND UNLABORED. O2 2L N/C IN PLCE. NO ACUTE DISTRESS OBSERVED. SITTER AT BEDSIDE FOR SAFETY. BED IN LOW POSITION. CALL LIGHT WITHIN REACH.
--- NOTE | 2021-06-09 21:00 | NUR ---
PATIENT RESTING SUPINE. NO COMPLAINTS. NO ACUTE DISTRESS OBSERVED. SITTER AT BEDSIDE FOR SAFETY. FALL PRECAUTINS MAINTAINED.
--- NOTE | 2021-06-09 22:00 | NUR ---
PATIENT RESTING QUIETLY. SITTER AT BEDSIDE. NO ACUTE DISTRESS OBSERVED.
--- NOTE | 2021-06-09 23:52 | NUR ---
PATIENT IN BED SUPINE. O2 2L N/C IN PLACE. RESPIRATIONS EVEN AND UNLABORED. ON TELEMETRY. FALL PRECAUTIONS MAINTAINED. SITTER AT BEDSIDE FOR SAFETY/
[2021-06-10] VITALS (22 sets, daily range): BP systolic 99–162; BP diastolic 50–83
--- NOTE | 2021-06-10 02:00 | NUR ---
TYLENOL GIVEN FOR HEADACHE WITH POSITIVE EFFECT. RESTING QUIETLY WITH SITTER AT BEDSIDE.
--- NOTE | 2021-06-10 05:00 | NUR ---
Regina.Lencho. LABS DRAWN FROM CV. ALL LUMENS FLUSH WELL.
[2021-06-10 05:37] LABS: HEMATOCRIT 36.6 % (37.0-47.0); HEMOGLOBIN 12.2 g/dl (12.0-16.0); MEAN CELL VOLUME 97.9 fL CALC (80.0-100.0); MEAN CORPUSCULAR HGB 32.6 pG CALC (26.0-32.0); MEAN CORPUSCULAR HGB CONC 33.3 g/dL CAL (32.0-36.0); RED BLOOD COUNT 3.74 mill/uL (4.20-5.60); RED CELL DISTRI WIDTH 12.3 % (11.5-15.5)
[2021-06-10 05:49] LABS: BUN 9 mg/dL (8-23); BUN/CREATININE RATIO 22 (12-20 (CALC)); CARBON DIOXIDE 34 mmol/l (22-30); CHLORIDE 100 mmol/l (95-108); CREATININE 0.4 mg/dL (0.5-1.0); GFR > 60 ML/MIN (>=60 (CALC)); GFR FOR AFR.AMER. > 60 ML/MIN (>=60 (CALC)); SODIUM 137 mmol/l (137-146)
[2021-06-10 05:50] LABS: ANION GAP 7 (6-22 (CALC)); POTASSIUM 3.8 mmol/l (3.5-5.1)
--- NOTE | 2021-06-10 08:04 | NUR ---
PATIENT IS ALERT TO SELF AND PLACE. DOESNT KNOW YEAR OR MONTH. STATES SHE CANT MOVE HER BOTTOM HALF OF HER BODY. SIERRA LEONEAN SPEAKING ONLY. HAS A SITTER WITH HER AT THIS TIME. SITTER STATED SHE HAD A BROWN, SCANT, BM THIS MORNING. HAD HER UP IN THE CHAIR TILL PATIENT STARTED TO FALL ASLEEP, PLACED BACK IN BED. LUNGS ARE CLEAR AND SLIGHTLY DMINISHED AT BOTTOM BASES. NORMAL HEART SOUNDS. NSR AT THIS TIME. VITALS ARE STABLE. ACTIVE BOWEL SOUNDS. EQUAL AND STRONG HAND FABRIC SOURCER. NO EDEMA PRESENT AT THIS TIME. HAS GLYNN STOCKINGS IN PLACE. STRONG PULSES. SAFETY MEASURES IN PLACE. CALL LIGHT IN REACH. WILL CONTINUE TO MONITOR.
--- NOTE | 2021-06-10 10:00 | NUR ---
PATIENT IS SITTING UP IN BED WATCHING TV TALKING TO SITTER.
--- NOTE | 2021-06-10 10:30 | NUR ---
Patient carried out seated B LE AROM exercises: hip flexion, hip adduction, hip abduction, hamstring curls, knee extension, gluteal squeezes, and ankle pumps for 10 reps x 3 sets with constant verbal cuing to help decrease trick movements. Patient also did bed mobility log rolling technique and sit to stand push off transfers for 1 to 2 reps. with min A x 1-2 with constant verbal and tactile cuing to help decrease trick movements and fall risks (patient struggled to assume proper positioning prior to transfer ADLs).
--- NOTE | 2021-06-10 12:00 | NUR ---
PATIENT IS SITTING UP EATING LUNCH, SMALL BITES.
--- NOTE | 2021-06-10 14:00 | NUR ---
PATIENT IS RESTING IN BED.
--- NOTE | 2021-06-10 15:49 | NUR ---
PT SEEN SITTING ON RECLINER. VERONICA AOX3, ABLE TO BRING ARMS OVERHEAD I. SHE FED HERSELF WITH A SPOON AND WAS ABLE TO FUNCTIONALLY REACH FORWARD TO OBTAIN CUP AND BRING WATER STRAW TO MOUTH. VERONICA IS STILL MOD A FOR DRESSING AND HAS WEAKNESS IN LE, LIMITING HER ABILITY TO COMPLETE TOILETING AND SHOWERING INDEPENDENTLY.
--- NOTE | 2021-06-10 16:00 | NUR ---
PATIENT IS WATCHING TV IN BED.
--- NOTE | 2021-06-10 19:15 | NUR ---
awake. no distress. teletypesetter monitor shows sinus rhythm hr 84. rij tlc in place & flushes well. morgan cath in place. urine clear yellow. fall precautions & howard act conts. sitter @ bedside. assisted to bsc with minimal assist then to bedside chair.
--- NOTE | 2021-06-10 22:00 | NUR ---
assisted back to bed. verena well.
[2021-06-11] VITALS (12 sets, daily range): BP systolic 104–153; BP diastolic 51–78
--- NOTE | 2021-06-11 00:01 | NUR ---
watching tv. no acute distress. sitter remains @ bedside.
--- NOTE | 2021-06-11 02:00 | NUR ---
eyes closed. no distress. teletypesetter monitor shows sinus rhythm hr 74.
--- NOTE | 2021-06-11 04:40 | NUR ---
blood drawn & sent to lab. morgan cath removed.
--- NOTE | 2021-06-11 05:48 | NUR ---
eyes closed. no distress. child monitor shows sinus rhythm hr 62. sitter remains @ bedside.
[2021-06-11 05:55] LABS: ANION GAP 8 (6-22 (CALC)); BUN 15 mg/dL (8-23); BUN/CREATININE RATIO 32 (12-20 (CALC)); CARBON DIOXIDE 31 mmol/l (22-30); CHLORIDE 101 mmol/l (95-108); CREATININE 0.5 mg/dL (0.5-1.0); GFR > 60 ML/MIN (>=60 (CALC)); GFR FOR AFR.AMER. > 60 ML/MIN (>=60 (CALC)); POTASSIUM 3.5 mmol/l (3.5-5.1); SODIUM 137 mmol/l (137-146)
[2021-06-11 05:57] LABS: HEMATOCRIT 34.8 % (37.0-47.0); HEMOGLOBIN 11.6 g/dl (12.0-16.0); MEAN CELL VOLUME 99.1 fL CALC (80.0-100.0); MEAN CORPUSCULAR HGB CONC 33.3 g/dL CAL (32.0-36.0); RED BLOOD COUNT 3.51 mill/uL (4.20-5.60); RED CELL DISTRI WIDTH 12.5 % (11.5-15.5)
--- NOTE | 2021-06-11 08:00 | NUR ---
PATIENT IS A/OX3, KNOWS HER NAME, AND PLACE. SHE EVEM TOLD ME THAT TODAY IS SUNDAY. SHE SAID SHE WANTED TO SLEEP IN A LITTLE MORE TOLD HER THATS FINE JUST NEED TO ASSESS YOU FIRST. HAS BREAKFAST ON HER SIDE TABLE. A SITTER BY HER SIDE. 4MM PERRLA. SPEECH IS CLEAR, SPEAKS ONLY [place] BUT DOES RESPOND SOMETIMES TO DANISH. NORMAL HEART SOUNDS. ACTIVE BOWEL SOUNDS. SMALL BM THIS MORNING. VITAL SIGNS ARE STABLE. HAS SOME TRACE EDEMA IN BILAT HANDS AND LOWER ARMS. STRONG PULSES. SAFETY MEASURES IN PLACE. CALL LIGHT IN REACH. WILL CONTINUE TO MONITOR, PER HOSPITAL'S POLICY.
--- NOTE | 2021-06-11 10:00 | NUR ---
PATIENT IS SITTING UP IN CHAIR WATCHING TV, SITTER AT BEDSIDE
--- NOTE | 2021-06-11 10:45 | NUR ---
PATIENT'S DAUGHTER AGUSTÍN CALLED FOR AN UPDATE. CODE WAS PROVIDED. UPDATE WAS GIVEN.
--- NOTE | 2021-06-11 12:00 | NUR ---
PATIENT IS SITTING UP IN CHAIR WATCHING TV.
--- NOTE | 2021-06-11 14:00 | NUR ---
SITTING IN CHAIR, SLEEPING. SITTER AT BEDSIDE
--- NOTE | 2021-06-11 15:15 | NUR ---
FAXED OVER COVID RESULTS. SPOKE TO MACIE FROM [facility], STATED THAT THEY WILL TOUCH BACK WITH ME IN A COUPLE HOURS FOR AN UPDATE ON A BED FOR THIS PATIENT.
--- NOTE | 2021-06-11 15:53 | NUR ---
Patient participated with B LE seated AROM exercises doing hip flexion, hip adduction, hip abduction, hamstring curls, knee extension, gluteal squeezes, and ankle pumps for 10 reps x 2 sets with occasional verbal and tactile cuing to help decrease trick movements and fall risks. Patient also did log rolling bed mobility ADLs and sit to stand push off transfers (2 to 3 reps) with CGA x 1 with occasional verbal cuing to maintain proper body mechanics and decrease fall risks. Patient required CGA x 1 with gait ADLs from recliner to the bathroom and back with sluggish manner.
--- NOTE | 2021-06-11 15:56 | NUR ---
REPORT REC FROM Moises HAIRSTON RN
--- NOTE | 2021-06-11 16:00 | NUR ---
PATIENT REPORT GIVEN OFF TO JET TOLBERT IN [facility] ROOM 271.
--- NOTE | 2021-06-11 16:47 | NUR ---
PT ARRIVED VIA WC IN STABLE CONDITION ACCOMPANIED BY Kalpana HERNANDEZ CNA. A&O X3. PT DENIES ANY PAIN AT THIS TIME. PT C/O OF SOME WEAKNESS/DIZZINESS. X1 ASSIST FROM WC TO BED. TRIPLE LUMEN RT IJ IN PLACE, ALL LUMENS FLUSH WITH EASE AND HAVE BLOOD RETURN. DRESSING INTACT. CARE RESUMED BY THIS SALES REPRESENTATIVE SALES MANAGER. PT ORIENTED TO ROOM. SITTER AT BEDSIDE. NO OTHER NEEDS AT THIS TIME. CALL LIGHT WITHIN REACH.
--- NOTE | 2021-06-11 16:49 | NUR ---
UPDATED AGUSTÍN, DAUGHTER, ON HER MOTHER SWITCHING ROOM/FLOORS ALSO THAT WE ARE STILL SEARCHING FOR A PLACEMENT FOR HER.
--- NOTE | 2021-06-11 17:59 | NUR ---
SPOKE TO KACIE FROM [facility], STATED HE WILL TALK TO A PROVIDER AND SEE IF THEY WILL ACCEPT HER. FAXED OVER TWO PAPERS PER KACIE'S REQUEST.
--- NOTE | 2021-06-11 18:44 | NUR ---
BRUNILDA FROM [facility] CALLED BACK STATED THEY WILL BE ACCEPTING THIS PATIENT, NUMBER IS [phone] TO GIVE OFF REPORT TO LIBEL NURSE AT THAT FACILITY. WILL CALL OVER TO [facility] TO GIVE THEM AN UPDATE.
--- NOTE | 2021-06-11 19:45 | NUR ---
PATIENT RESTING IN BED WITH HIGH SCHOOL ASSISTANT FOOTBALL COACH SITTER AT BEDSIDE PATIENT IS [employer]. PATIENT WITH NO COMPLAINTS AT THIS TIME. PATIENT HAS BEEN TOLD THAT SHE WILL BE TRANSFERRED TO [facility]. REPORT WAS CALLED TO BAHMAN AT [phone]. PATIENT TO BE GOING TO ROOM 215 BED 2. CALL PLACED BY NSG AGRICULTURAL EQUIPMENT MECHANIC MANNY FOR PATIENT TO BE TRANSPORTED TO FACILITY TONIGHT. WILL BE COMING FOR PATIENT [facility]. RIGHT IJ WAS REMOVED WITHOUT ANY DIFFICULTY AND DRESSING APPLIED. CALL LIGHT IN reach. WILL CONT TO MONITOR.
--- NOTE | 2021-06-11 22:05 | NUR ---
PATIENT DISCHARGED VIA WHEELCHAIR WITH 2 KEI FROM O TO TRANSPORT PATIENT TO [facility] AT [facility]. PATIENT IS [employer]. FACILITY MOTIFIED THAT PATIENT IS LEAVING FACILITY. SON MAMADOU NOTIFIED THAT HIS MOTHER IS BEING TRANSPORTED TO FACILITY AT THIS TIME. MAMADOU PHONE # [phone].
== END 2021-06-11 22:00 | DRG 917 ==
LOC: ED 22:12 → ED-I 06-03 11:14 → ED 06-03 12:04 → ED-I 06-03 12:04 → ICU 06-07 07:00 → MS2 06-11 16:47
PROVIDERS: Emergency Medicine; Nurse Practitioner; ADMIT Hospitalist; ATTEND Hospitalist
PROC: 02HV33Z Insertion of Infusion Device into Superior Vena Cava, Percutaneous Approach (ICD-10-PCS; principal; 2021-06-03)
PROC: 0BH17EZ Insertion of Endotracheal Airway into Trachea, Via Natural or Artificial Opening (ICD-10-PCS; 2021-06-03)
PROC: 5A1945Z Respiratory Ventilation, 24-96 Consecutive Hours (ICD-10-PCS; 2021-06-03)
DX: T42.4X2A Poisoning by benzodiazepines, intentional self-harm, initial encounter (principal); G92 Toxic encephalopathy; T50.902A Poisoning by unspecified drugs, medicaments and biological substances, intentional self-harm, initial encounter; F32.9 Major depressive disorder, single episode, unspecified; M47.22 Other spondylosis with radiculopathy, cervical region; M47.24 Other spondylosis with radiculopathy, thoracic region; Z20.822 Contact with and (suspected) exposure to COVID-19
CPT/HCPCS: A9579; S0164

== ENCOUNTER 2022-03-19 09:53 | Emergency (ER) | payer OTHER ==
[~2022-03-19] VITALS: Ht 147.3 cm; Wt 63.6 kg
[2022-03-19 10:31] LABS: URINE BILIRUBIN - DIPSTICK NEGATIVE (NEGATIVE); URINE BLOOD DIPSTICK LARGE (NEGATIVE); URINE COLOR YELLOW; URINE GLUCOSE - DIPSTICK NEGATIVE (NEGATIVE); URINE KETONE NEGATIVE (NEGATIVE); URINE LEUK ESTERASE NEGATIVE (NEGATIVE); URINE PROTEIN - DIPSTICK 30 mg/dL (NEG-TRACE); URINE SPECIFIC GRAVITY >=1.030; URINE UROBILINOGEN - DIPSTICK 0.2 E.U./dL (0.2)
[2022-03-19 10:34] LABS: IMMATURE GRANULOCYTES 0.3 % (0.0-5.0); MEAN CELL VOLUME 101.2 fL CALC (80.0-100.0); MEAN CORPUSCULAR HGB 32.9 pG CALC (26.0-32.0); MEAN CORPUSCULAR HGB CONC 32.6 g/dL CAL (32.0-36.0); NEUT# 7.1 thou/uL (2.00-7.15); RED BLOOD COUNT 4.34 mill/uL (4.20-5.60); RED CELL DISTRI WIDTH 12.3 % (11.5-15.5); URINE NITRITE - DIPSTICK NEGATIVE (Negative)
[2022-03-19 10:35] LABS: HEMATOCRIT 43.9 % (37.0-47.0); HEMOGLOBIN 14.3 g/dl (12.0-16.0)
[2022-03-19 10:43] LABS: URINE RBC 25-50 RBC/hpf (0-5); URINE SQUAMOUS EPITHELIAL CELL FEW EPI/hpf (0-FEW); URINE WBC 0-2 WBC/hpf (0-5)
[2022-03-19 10:49] LABS: ALKALINE PHOSPHATASE 81 u/l (38-126); AMYLASE 93 u/l (30-110); ANION GAP 9 (6-22 (CALC)); BILIRUBIN, TOTAL 0.4 mg/dL (0.0-1.4); BUN 14 mg/dL (8-23); BUN/CREATININE RATIO 20 (12-20 (CALC)); CARBON DIOXIDE 26 mmol/l (22-30); CHLORIDE 106 mmol/l (95-108); CREATININE 0.7 mg/dL (0.5-1.0); GFR FOR AFR.AMER. > 60 ML/MIN (>=60 (CALC)); GFR OTHER RACES > 60 ML/MIN (>=60 (CALC)); LIPASE 96 u/l (23-300); POTASSIUM 3.8 mmol/l (3.5-5.1); SGOT/AST 20 u/l (9-36); SODIUM 138 mmol/l (137-146)
[2022-03-19 10:54] LABS: ALBUMIN 3.9 g/dL (3.2-5.0); TOTAL PROTEIN 7.1 g/dL (6.3-8.2)
[2022-03-19] MEDS ORDERED: ZOFRAN4 MG/TAB PO (12:55)
[2022-03-19] MEDS ORDERED: PERCOCET 5/325M1 TAB PO (12:55)
[2022-03-19] MEDS ORDERED: TAMSULOSIN0.4 MG PO (12:55)
[2022-03-19 13:03] VITALS: BP 127/73
== END 2022-03-19 13:04 | disposition home or self-care (01) ==
LOC: ED 09:53
DX: N13.2 Hydronephrosis with renal and ureteral calculous obstruction (principal); Z20.822 Contact with and (suspected) exposure to COVID-19
CPT/HCPCS: Q9967